=== PATIENT | female | born 1990 | race Caucasian/White ===

== ENCOUNTER 2016-11-03 09:02 | Emergency (ER) | payer SELFPAY ==
[2016-11-03 09:17] VITALS: BP 141/73
[2016-11-03] MEDS ORDERED: Lidocaine 1% with EPINEPHrine 1:100,000 50 ML MDV SUBCUT STA (09:41)
--- NOTE | 2016-11-03 10:10 | EDM.PDOC ---
ED HPI GENERAL MEDICAL PROBLEM - General Chief Complaint: Wound Recheck Stated Complaint: SORE ON FOREHEAD Time Seen by Provider: 11/03/16 09:35 Source of Information: Reports: Patient, RN notes reviewed History Limitations: Reports: No limitations - History of Present Illness INITIAL COMMENTS - FREE TEXT/NARRATIVE: 26-year-old female presents emergency department today with complaints of a boil on her forehead she did have this drained in the clinic 2 days prior to this since reaccumulated she does experience a lot of pain and pressure denies any fevers, currently on antibiotics of Bactrim wound culture shows rare staph aureus with sensitivity to Bactrim - Related Data Allergies Allergy/AdvReac Type Severity Reaction Status Date / Time No Known Allergies Allergy Verified 11/03/16 09:23 Home Meds: Home Meds Fexofenadine/Pseudoephedrine [Alberta-D 12 Hour Tablet] 11/03/16 [History] Sulfamethoxazole/Trimethoprim [Sulfamethoxazole-Tmp Ds Tablet] 11/03/16 [ History] Past Medical History - Past Health History Medical/Surgical History: Denies Medical/Surgical History Social & Family History - Tobacco Use Smoking Status *Q: Never Smoker ED ROS GENERAL - Review of Systems Review Of Systems: See Below Constitutional: Denies: fever, chills Skin: Reports: wound ED EXAM, GENERAL - Physical Exam Exam: See Below Exam Limited By: No limitations General Appearance: alert, WD/WN, no apparent distress Skin Exam: Warm, Erythema, Increased warmth, Wound/incision ED I&D PROCEDURES - I&D Site: forehead Skin prep: chlorhexidine (hibiciens) Local anesthesia - Lidocaine (Xylocaine): 1% with epi Local anesthetic volume: 1cc Area incised with: 11 blade Drainage: purulent, bloody, moderate amount Probed to break up loculations: Yes Packed with: none Sterile dressing: none Complications: No Course - Vital Signs Last Recorded V/S: Last Vital Signs Temp 95.9 F 11/03/16 09:32 Pulse 87 11/03/16 09:32 Resp 13 11/03/16 09:32 BP 141/73 H 11/03/16 09:32 Pulse Ox 95 11/03/16 09:32 - Orders/Labs/Meds Meds: Medications Discontinued Medications Generic Name Dose Route Start Last Admin Trade Name Freq PRN Reason Stop Dose Admin Lidocaine/Epinephrine 20 ml 11/03/16 09:41 11/03/16 09:48 Xylocaine 1% With Epinephrine 1:100,000 SUBCUT 11/03/16 09:42 20 ml NOW STA Administration Departure - Departure Time of Disposition: 10:09 Disposition: Home, Self-Care 01 Condition: good Clinical Impression: Boil, face Forms: ED Department Discharge Additional Instructions: Take full course of antibiotics, Please followup with your primary care provider in 3-5 days if not better, please call return to the emergency department with worsening of symptoms. - Assessment/Plan Plan: Assessment Acuity = acute Site and laterality = boil for head Etiology = bacterial cause rare staph aureus Manifestations = pain Location of injury = home Lab values = none Plan Moderate amount of thick purulent discharge, continue with antibiotics of Bactrim followup appointment with primary care Patient was in agreement with the plan all questions were answered, they were instructed to return to the emergency department or call for worsening symptoms. This note was dictated using [employer]) voice recognition software please call with any questions.
== END 2016-11-03 11:00 | disposition home or self-care (01) ==
LOC: JP.ED 09:02
DX: L02.02 Furuncle of face (principal); Z79.899 Other long term (current) drug therapy
CPT/HCPCS: 10060; 99282-25; 99283-25

== ENCOUNTER 2019-07-27 19:32 | Emergency (ER) | payer BC ==
[2019-07-27] MEDS ORDERED: Ketorolac 60 MG/2 ML SDV IM ONE (19:38)
[2019-07-27 19:40] VITALS: BP 119/52; PULSE 77
[2019-07-27] MEDS ORDERED: Ondansetron 4 MG Tab.DIS PO ONE (19:41)
[2019-07-27] MEDS ORDERED: HYDROmorphone 1 MG/ML Syringe IM ONE (19:41)
--- NOTE | 2019-07-27 19:49 | EDM.PDOC ---
ED HPI GENERAL MEDICAL PROBLEM - General Chief Complaint: Flank Pain Stated Complaint: KIDNEY STONE Time Seen by Provider: 07/27/19 19:35 Source of Information: Reports: Patient, Old Records History Limitations: Reports: No Limitations - History of Present Illness INITIAL COMMENTS - FREE TEXT/NARRATIVE: 28 yo female presents with about an hour's duration of L low back pain associated with nausea/vomiting much like that which she has had numerous times in the past with her recurrent ureterolithiasis. Has seen urology. Has never had to have surgical assistance with passage of the stones. No recent fever. Has a dumpster driver. Has had her stones analyzed. Onset: Today, Sudden Onset Date: 08/11/19 Onset Time: 18:30 Duration: Hour(s): (1+), Constant Location: Reports: Back (Left low back) Quality: Reports: Pressure Severity: Severe Improves with: Reports: Medication Worsens with: Reports: Other (stone moving) Context: Reports: Other (see HPI) Associated Symptoms: Reports: Nausea/Vomiting. Denies: Fever/Chills Treatments [employer]VER [employer]: Reports: Other Medication(s) Flank Pain Score (Numeric/FACES): 10 - Related Data Allergies Allergy/AdvReac Type Severity Reaction Status Date / Time No Known Allergies Allergy Verified 07/27/19 19:57 Home Meds: Home Meds Fexofenadine/Pseudoephedrine [Alberta-D 12 Hour Tablet] 180 mg PO DAILY [History] Pnv No.95/Ferrous Fum/Folic AC [ Vitamin Tablet] 1 each PO DAILY [History] Sertraline [Zoloft] 50 mg PO DAILY 07/27/19 [History] Past Medical History - Past Health History Medical/Surgical History: Denies Medical/Surgical History ED ROS GENERAL - Review of Systems Review Of Systems: Comprehensive ROS is negative, except as noted in HPI. Constitutional: Reports: No Symptoms. Denies: Fever, Chills HEENT: Reports: No Symptoms Respiratory: Reports: No Symptoms GI/Abdominal: Reports: Nausea, Vomiting. Denies: Black Stool, Bloody Stool, Constipation, Diarrhea, Distension, Flatus, Hematemesis, Hematochezia, Melena : Reports: Flank Pain (L low flank area). Denies: Dysuria Musculoskeletal: Reports: No Symptoms Skin: Reports: No Symptoms Neurological: Reports: No Symptoms Psychiatric: Reports: No Symptoms ED EXAM, RENAL/ - Physical Exam Exam: See Below Exam Limited By: No Limitations General Appearance: Alert, WD/WN, Moderate Distress Eye Exam: Bilateral Eye: Normal Inspection Ears: Hearing Grossly Normal Nose: Normal Inspection, No Blood Throat/Mouth: Normal Lips, Normal Voice, No Airway Compromise Head: Atraumatic, Normocephalic Neck: Normal Inspection Respiratory/Chest: No Respiratory Distress, No Accessory Muscle Use Cardiovascular: Regular Rate, Rhythm Back Exam: Normal Inspection. No: CVA Tenderness (R), CVA Tenderness (L) Extremities: Normal Inspection, Normal Range of Motion, Non-Tender, No Pedal Edema Neurological: Alert, Oriented, CN II-XII Intact, Normal Cognition, No Motor/ Sensory Deficits Psychiatric: Normal Affect, Normal Mood Skin Exam: Warm, Dry, Intact, Normal Color, No Rash Course - Vital Signs Last Recorded V/S: Last Vital Signs Temp 35.9 C 07/27/19 19:37 Pulse 77 07/27/19 19:37 Resp 20 07/27/19 19:37 BP 119/52 L 07/27/19 19:37 Pulse Ox 99 07/27/19 19:37 - Orders/Labs/Meds Orders: Active Orders 24 hr Category Date Time Status CULTURE URINE [RM] Stat Lab 07/27/19 20:33 Ordered Labs: Laboratory Tests 07/27/19 Range/Units 19:38 Urine Color [place] A (YELLOW) Urine Appearance Cloudy A (CLEAR) Urine pH 6.0 (5.0-8.0) Ur Specific [place] >= 1.030 (1.008-1.030) Urine Protein Trace H (NEGATIVE) mg/dL Urine Glucose (UA) Negative (NEGATIVE) mg/dL Urine Ketones Negative (NEGATIVE) mg/dL Urine Occult Blood Large H (NEGATIVE) Urine Nitrite Negative (NEGATIVE) Urine Bilirubin Negative (NEGATIVE) Urine Urobilinogen 0.2 (0.2-1.0) EU/dL Ur Leukocyte Esterase Negative (NEGATIVE) Urine RBC 20-30 H (0-5) Urine WBC 5-10 H (0-5) Ur Epithelial Cells Many Amorphous Sediment Few Urine Bacteria Not seen Urine Mucus Many Meds: Medications Discontinued Medications Generic Name Dose Route Start Last Admin Trade Name Freq PRN Reason Stop Dose Admin Hydromorphone HCl 1 mg 07/27/19 19:41 12/03/19 19:49 Dilaudid IM 07/27/19 19:42 1 mg ONETIME ONE Administration Ketorolac Tromethamine 60 mg 07/27/19 19:38 07/27/19 19:49 Toradol IM 07/27/19 19:39 60 mg ONETIME ONE Administration Ondansetron HCl 4 mg 07/27/19 19:41 07/27/19 19:49 Zofran Odt PO 07/27/19 19:42 4 mg ONETIME ONE Administration Departure - Departure Time of Disposition: 20:45 Disposition: Home, Self-Care 01 Condition: Fair Clinical Impression: Ureterolithiasis - Discharge Information *PRESCRIPTION DRUG MONITORING PROGRAM REVIEWED*: No *COPY OF PRESCRIPTION DRUG MONITORING REPORT IN PATIENT DEN: No Referrals: Toya Yoder PA [Primary Care Provider] - Forms: ED Department Discharge Additional Instructions: Strain urine and save any sediment. Drink more fluids to stay well hydrated. Take Zofran as needed for nausea control. Take Percocet and ibuprofen(none for 5.5 hrs) for pain control. Recheck with your doctor as needed. - My Orders Last 24 Hours: My Active Orders 07/27/19 20:33 CULTURE URINE [RM] Stat - Assessment/Plan Last 24 Hours: My Active Orders 07/27/19 20:33 CULTURE URINE [RM] Stat
== END 2019-07-27 20:52 | disposition home or self-care (01) ==
LOC: JP.ED 19:32
DX: N20.1 Calculus of ureter (principal)
CPT/HCPCS: 81001; 87086; 96372; 99284; A9270; J1170; J1885

== ENCOUNTER 2020-04-16 11:08 | Inpatient (IN) | payer MEDICAID ==
[2020-04-16] MEDS ORDERED: fentaNYL 100 MCG/2 ML SDV IVPUSH PRN (12:29)
[2020-04-16] MEDS ORDERED: Sodium Chloride 0.9% 10 ML Syringe FLUSH PRN (12:29)
[2020-04-16] MEDS ORDERED: Ondansetron 4 MG/2 ML SDV IV PRN (12:29)
[2020-04-16] MEDS ORDERED: Calcium Carbonate 500 MG Tab.Chew PO PRN (12:29)
[2020-04-16] MEDS ORDERED: ePHEDrine 50 MG/ML SDV IVPUSH PRN (12:34)
[2020-04-16] MEDS ORDERED: Lactated Ringers 1,000 ML IV ONE (12:34)
--- NOTE | 2020-04-16 12:41 | PCM.LDHP ---
L&D History of Present Illness - General Date of Service: 04/16/20 Admit Problem/Dx: Patient Status Order with Admit Dx/Problem 04/16/20 12:30 Patient Status [ADT] Routine Admission Diagnosis/Problem Admission Diagnosis/Problem Spontaneous rupture of amniotic membranes Source of Information: Patient History Limitations: Reports: No Limitations - History of Present Illness Introduction:: 04/16/20 29 yo is here at 38 4/7 with SROM of clear fluid at home. She has felt as though she has been leaking some fluid for several weeks which was likely increased vaginal discharge. She noticed more leaking starting Friday evening. She felt a few "gushes" last evening around supper and then filled several pads with clear fluid overnight but did not come in until late this am. She is not antonia. SVE /-3. She is GBS neg, Rubella immune, A positive blood type, all STI's negative. She has likely been ruptured for somewhere between 19 (big gushes) and 43 hours (Friday when she started feeling leaking). She is afebrile and fluid is clear. Category 1 tracing. Her and her both agree to Pitocin induction. - Related Data Allergies/Adverse Reactions: Allergies Allergy/AdvReac Type Severity Reaction Status Date / Time No Known Allergies Allergy Verified 07/27/19 19:57 Home Medications: Home Meds Fexofenadine/Pseudoephedrine [Alberta-D 12 Hour Tablet] 180 mg PO DAILY 11/03/16 [History] Pnv No.95/Ferrous Fum/Folic AC [ Vitamin Tablet] 1 each PO DAILY 07/27/19 [History] Sertraline [Zoloft] 50 mg PO DAILY 07/27/19 [History] Omeprazole 20 mg PO DAILY 04/16/20 [History] Past Medical History - Past Health History Medical/Surgical History: Denies Medical/Surgical History Genitourinary History: Reports: Renal Calculus 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: : 3 Para: 2 LMP (Approximate): Psychiatric History: Reports: Anxiety, Depression - Past Surgical History HEENT Surgical History: Reports: Adenoidectomy, Tonsillectomy Female Surgical History: Reports: None Social & Family History - Family History Family Medical History: Noncontributory - Tobacco Use Smoking Status *Q: Never Smoker - Caffeine Use Caffeine Use: Reports: Coffee, Soda, Tea - Recreational Drug Use Recreational Drug Use: No H&P Review of Systems - Review of Systems: Review Of Systems: See Below General: Reports: No Symptoms HEENT: Reports: No Symptoms Pulmonary: Reports: No Symptoms Cardiovascular: Reports: No Symptoms Gastrointestinal: Reports: No Symptoms Genitourinary: Reports: No Symptoms Musculoskeletal: Reports: No Symptoms Skin: Reports: No Symptoms Psychiatric: Reports: No Symptoms Neurological: Reports: No Symptoms Hematologic/Lymphatic: Reports: No Symptoms Immunologic: Reports: No Symptoms L&D Exam - Exam Exam: See Below - Vital Signs Vital Signs: Last Vital Signs Temp 36.8 C 04/16/20 11:51 Pulse 97 04/16/20 11:51 Resp 16 04/16/20 11:51 BP 142/81 H 04/16/20 11:51 Pulse Ox 96 04/16/20 11:51 Weight: 105.687 kg - OB Specific Contraction Intensity: Mild Movement: Active Heart Tones: Present Heart Tones per Min: 140 Heart Rate (FHR) Variability: Moderate (6-25 bmp) Presentation: Vertex - Thompson Score Thompson Score Cervix Position: Posterior Thompson Score Consistency: Soft Thompson Score Effacement: 51-70% Thompson Score Dilation: 1-2 cm Thompson Score Infant's Station: -3 Thompson Score Total: 5 - Exam General: Alert, Oriented HEENT: PERRLA, Conjunctiva Clear, Hearing Intact, Mucosa Moist & [place], Nares Patent, Normal Nasal Septum, Posterior Pharynx Clear Neck: Supple, Trachea Midline Lungs: Clear to Auscultation, Normal Respiratory Effort Cardiovascular: Regular Rate, Regular Rhythm GI/Abdominal Exam: Normal Bowel Sounds, Soft, Non-Tender, No Organomegaly, No Distention, No Abnormal Bruit, No Mass, Pelvis Stable Rectal Exam: Normal Exam, Normal Rectal Tone Genitourinary: Normal external exam, Cervical dilitation. No: Vaginal bleeding Back Exam: Normal Inspection, Full Range of Motion Extremities: Normal Inspection, Normal Range of Motion, Non-Tender, No Pedal Edema, Normal Capillary Refill Skin: Warm, Dry, Intact Neurological: Cranial Nerves Intact, Reflexes Equal Bilateral Psychiatric: Alert, Normal Affect, Normal Mood - Patient Data Lab Results Last 24 hrs: Laboratory Results - last 24 hr 04/16/20 04/16/20 Range/Units 11:28 11:28 Urine Color Yellow (YELLOW) Urine Appearance Clear (CLEAR) Urine pH 7.0 (5.0-8.0) Ur Specific [place] 1.015 (1.008-1.030) Urine Protein Negative (NEGATIVE) mg/dL Urine Glucose (UA) Negative (NEGATIVE) mg/dL Urine Ketones Negative (NEGATIVE) mg/dL Urine Occult Blood Trace-intact H (NEGATIVE) Urine Nitrite Negative (NEGATIVE) Urine Bilirubin Negative (NEGATIVE) Urine Urobilinogen 0.2 (0.2-1.0) EU/dL Ur Leukocyte Esterase Negative (NEGATIVE) Urine RBC Not seen (0-5) Urine WBC Not seen (0-5) Ur Epithelial Cells Few Membrane Rupture Positive H (NEGATIVE) - Problem List (1) Spontaneous rupture of amniotic membranes SNOMED Code(s): 981060951 ICD Code: [id number] - Status: Acute Current Visit: Yes (2) Prolonged rupture of membranes Status: Acute Current Visit: Yes (3) SNOMED Code(s): 23573630 ICD Code: Z34.90 - ENCNTR FOR SUPRVSN OF NORMAL , UNSP, UNSP TRIMESTER Status: Acute Current Visit: Yes Qualifiers: Weeks of gestation: 38 weeks Qualified Code(s): Z3A.38 - 38 weeks gestation of Problem List Initiated/Reviewed/Updated: Yes Orders Last 24hrs: Active Orders 24 hr Category Date Time Status Patient Status [ADT] Routine ADT 04/16/20 12:30 Ordered Communication Order [RC] ASDIRECTED Care 04/16/20 12:30 Ordered Communication Order [RC] ASDIRECTED Care 04/16/20 12:34 Ordered Heart Tones [RC] PER UNIT ROUTINE Care 04/16/20 12:30 Ordered Insert Urinary Catheter [OM.PC] ASDIRECTED Care 04/16/20 12:45 Ordered Local Anesthetic Infusion Pump [RC] ASDIRECTED Care 04/16/20 12:34 Ordered Notify Provider Vital Signs [RC] PRN Care 04/16/20 12:31 Ordered Notify Provider [RC] PRN Care 04/16/20 12:30 Ordered OB Check [OM.PC] Click to Edit Care 04/16/20 11:09 Ordered PCEA Epidural [RC] ASDIRECTED Care 04/16/20 12:34 Ordered PCEA Epidural [RC] ASDIRECTED Care 04/16/20 12:34 Ordered Up ad [place] [RC] ASDIRECTED Care 04/16/20 12:29 Ordered Urinary Catheter Assessment [RC] ASDIRECTED Care 04/16/20 12:34 Ordered VTE/DVT Education [RC] Click to Edit Care 04/16/20 12:31 Ordered Vital Signs [RC] PER UNIT ROUTINE Care 04/16/20 12:30 Ordered Regular Diet [DIET] Diet 04/16/20 Lunch Ordered CBC W/O DIFF,HEMOGRAM [HEME] Routine Lab 04/16/20 12:29 Ordered Calcium Carbonate [Tums] Med 04/16/20 12:29 Ordered 1,000 mg PO Q2HR PRN Lactated Ringers [Ringers, Lactated] 1,000 ml Med 04/16/20 12:34 Ordered IV .BOLUS Ondansetron [Zofran] Med 04/16/20 12:29 Ordered 4 mg IV Q4H PRN Oxytocin/Normal Saline [Pitocin in NS 20 Units/1,000 ML Med 04/16/20 12:30 Ordered ] 20 unit in 1,000 ml IV TITRATE Sodium Chloride 0.9% [Saline Flush] Med 04/16/20 12:29 Ordered 10 ml FLUSH ASDIRECTED PRN ePHEDrine [ePHEDrine sulfate] Med 04/16/20 12:34 Ordered 10 mg IVPUSH ASDIRECTED PRN fentaNYL [Sublimaze] Med 04/16/20 12:29 Ordered 50 mcg IVPUSH Q1H PRN DVT/VTE Prophylaxis Reflex [OM.PC] Routine Oth 04/16/20 12:29 Ordered Epidural Catheter Management [OM.PC] Urgent Oth 04/16/20 12:34 Ordered Saline Lock Insert [OM.PC] Routine Oth 04/16/20 12:30 Ordered Resuscitation Status Routine Resus Stat 04/16/20 12:29 Ordered Medication Orders Calcium Carbonate/Glycine (Tums) 1,000 mg PO Q2HR PRN PRN Reason: Indigestion Fentanyl (Sublimaze) 50 mcg IVPUSH Q1H PRN PRN Reason: Pain (moderate 4-6) Oxytocin/Sodium Chloride (Pitocin In Ns 20 Units/1,000 Ml) 20 unit in 1,000 mls @ 6 mls/hr IV TITRATE NAVIN; Protocol Ondansetron HCl (Zofran) 4 mg IV Q4H PRN PRN Reason: Nausea/Vomiting Sodium Chloride (Saline Flush) 10 ml FLUSH ASDIRECTED PRN PRN Reason: Keep Vein Open Assessment/Plan Comment:: 04/16/20 here with Prelabor SROM at home somewhere between 19-43 hours Fluid is clear Category 1 tracing SVE 2/50/-3 GBS negative Plan: Starting pitocin induction Patient plans epidural Anticipate of male infant
[2020-04-16] MEDS ORDERED: Lactated Ringers 1,000 ML IV SCH (13:00)
--- NOTE | 2020-04-16 15:50 | PCM.PNLD ---
Labor Progress Note - VS & Meds Vital Signs: Last Vital Signs Temp 36.4 C 04/16/20 15:34 Pulse 85 04/16/20 15:34 Resp 18 04/16/20 15:34 BP 147/86 H 04/16/20 15:34 Pulse Ox 96 04/16/20 15:34 Active Medications: Current Medications Calcium Carbonate/Glycine (Tums) 1,000 mg PO Q2H PRN PRN Reason: Indigestion Ephedrine Sulfate (Ephedrine Sulfate) 10 mg IVPUSH ASDIRECTED PRN PRN Reason: Hypotension Fentanyl (Sublimaze) 50 mcg IVPUSH Q1H PRN PRN Reason: Pain (moderate 4-6) Oxytocin/Sodium Chloride (Pitocin In Ns 20 Units/1,000 Ml) 20 unit in 1,000 mls @ 6 mls/hr IV TITRATE NAVIN; Protocol Last Titration: 04/16/20 15:34 Dose: 12 munits/min, 36 mls/hr Documented by: Lactated Ringer's (Ringers, Lactated) 1,000 mls @ 0 mls/hr IV ASDIRECTED NAVIN Last Admin: 04/16/20 13:21 Dose: 25 mls/hr Documented by: Ondansetron HCl (Zofran) 4 mg IV Q4H PRN PRN Reason: Nausea/Vomiting Sodium Chloride (Saline Flush) 10 ml FLUSH ASDIRECTED PRN PRN Reason: Keep Vein Open Discontinued Medications Lactated Ringer's (Ringers, Lactated) 1,000 mls @ 999 mls/hr IV .BOLUS ONE Stop: 04/16/20 13:34 Last Admin: 04/16/20 14:36 Dose: 999 mls/hr Documented by: - Uterine Contractions Uterine Monitoring Mode: External [place] Contraction Frequency (min): 2-3 Contraction Duration (sec): 40-60 Contraction Intensity: Mild Uterine Resting Tone: Soft - Monitoring Monitor Mode: External Ultrasound Heart Rate (FHR) Variability: Moderate (6-25 bmp) Accelerations: Present, 15x15 Decelerations: None - Vaginal Exam Dilation (cm): 3 Effacement (Percent): 60 Station: -2 Cervical Position: Posterior Sterile Vaginal Exam Performed By: Tamanna Chan - Labor Progress (Free Text) Labor Progress: 04/16/20 SVE 3/60/-2, patient has made good cervical change and baby has dropped into the pelvis further. She is just starting to feel contractions but is tolerating them well. Up moving and on the ball so strip is not picking up baby much. Continue to increase pitocin as needed. Fluid continues to be clear. Category 1 tracing.
--- NOTE | 2020-04-16 17:35 | PCM.PNLD ---
Labor Progress Note - VS & Meds Vital Signs: Last Vital Signs Temp 36.4 C 04/16/20 16:44 Pulse 78 04/16/20 16:44 Resp 18 04/16/20 16:44 BP 141/76 H 04/16/20 16:44 Pulse Ox 95 04/16/20 16:44 Active Medications: Current Medications Calcium Carbonate/Glycine (Tums) 1,000 mg PO Q2H PRN PRN Reason: Indigestion Ephedrine Sulfate (Ephedrine Sulfate) 10 mg IVPUSH ASDIRECTED PRN PRN Reason: Hypotension Fentanyl (Sublimaze) 50 mcg IVPUSH Q1H PRN PRN Reason: Pain (moderate 4-6) Oxytocin/Sodium Chloride (Pitocin In Ns 20 Units/1,000 Ml) 20 unit in 1,000 mls @ 6 mls/hr IV TITRATE NAVIN; Protocol Last Titration: 04/16/20 17:01 Dose: 16 munits/min, 48 mls/hr Documented by: Lactated Ringer's (Ringers, Lactated) 1,000 mls @ 0 mls/hr IV ASDIRECTED NAVIN Last Admin: 04/16/20 13:21 Dose: 25 mls/hr Documented by: Ondansetron HCl (Zofran) 4 mg IV Q4H PRN PRN Reason: Nausea/Vomiting Sodium Chloride (Saline Flush) 10 ml FLUSH ASDIRECTED PRN PRN Reason: Keep Vein Open Discontinued Medications Lactated Ringer's (Ringers, Lactated) 1,000 mls @ 999 mls/hr IV .BOLUS ONE Stop: 04/16/20 13:34 Last Admin: 04/16/20 14:36 Dose: 999 mls/hr Documented by: - Uterine Contractions Uterine Monitoring Mode: External [place] Contraction Frequency (min): 2-3 Contraction Duration (sec): 60 Contraction Intensity: Moderate Uterine Resting Tone: Soft - Monitoring Monitor Mode: External Ultrasound Heart Rate (FHR) Variability: Moderate (6-25 bmp) Accelerations: Present, 15x15 Decelerations: None - Vaginal Exam Dilation (cm): 3 Effacement (Percent): 60 Station: -2 Cervical Position: Posterior Sterile Vaginal Exam Performed By: Tamanna Chan - Labor Progress (Free Text) Labor Progress: 04/16/20 Patient feeling rectal pressure so she was checked. SVE the same. Continue with clear fluid, no fever, FHT's category 1. Pitocin now at 17 mu/min. Continue to monitor. We did hands and knees for awhile. Encouraging up walking and as much upright movement as possible. Consider epidural once in active labor.
--- NOTE | 2020-04-16 18:42 | PCM.PNLD ---
Labor Progress Note - VS & Meds Vital Signs: Last Vital Signs Temp 36.4 C 04/16/20 16:44 Pulse 78 04/16/20 16:44 Resp 18 04/16/20 16:44 BP 141/76 H 04/16/20 16:44 Pulse Ox 95 04/16/20 16:44 Active Medications: Current Medications Calcium Carbonate/Glycine (Tums) 1,000 mg PO Q2H PRN PRN Reason: Indigestion Ephedrine Sulfate (Ephedrine Sulfate) 10 mg IVPUSH ASDIRECTED PRN PRN Reason: Hypotension Fentanyl (Sublimaze) 50 mcg IVPUSH Q1H PRN PRN Reason: Pain (moderate 4-6) Oxytocin/Sodium Chloride (Pitocin In Ns 20 Units/1,000 Ml) 20 unit in 1,000 mls @ 6 mls/hr IV TITRATE NAVIN; Protocol Last Titration: 04/16/20 17:25 Dose: 17 munits/min, 51 mls/hr Documented by: Lactated Ringer's (Ringers, Lactated) 1,000 mls @ 0 mls/hr IV ASDIRECTED NAVIN Last Admin: 04/16/20 13:21 Dose: 25 mls/hr Documented by: Ondansetron HCl (Zofran) 4 mg IV Q4H PRN PRN Reason: Nausea/Vomiting Sodium Chloride (Saline Flush) 10 ml FLUSH ASDIRECTED PRN PRN Reason: Keep Vein Open Discontinued Medications Lactated Ringer's (Ringers, Lactated) 1,000 mls @ 999 mls/hr IV .BOLUS ONE Stop: 04/16/20 13:34 Last Admin: 04/16/20 14:36 Dose: 999 mls/hr Documented by: - Uterine Contractions Uterine Monitoring Mode: External [place], Palpation Contraction Frequency (min): 2 Contraction Duration (sec): 40-60 Contraction Intensity: Moderate Uterine Resting Tone: Soft - Monitoring Monitor Mode: External Ultrasound Heart Rate (FHR) Variability: Moderate (6-25 bmp) Accelerations: Present, 15x15 Decelerations: None, Variable (one noted, portable monitors not working) - Vaginal Exam Dilation (cm): 4 Effacement (Percent): 80 Station: -2 Cervical Position: Midposition Sterile Vaginal Exam Performed By: Tamanna Chan - Labor Progress (Free Text) Labor Progress: 04/16/20 Contractions are now painful, patient in tub. SVE /-2. Calling for epidural now. One variable noted, continue to monitor.
[2020-04-16] MEDS ORDERED: Ropivacaine 200 MG in Premix Bag 1 BAG EPIDUR SCH (19:30)
[2020-04-16] MEDS ORDERED: Ropivacaine 100 ML ONE (19:40)
--- NOTE | 2020-04-16 20:48 | PCM.PNLD ---
Labor Progress Note - VS & Meds Vital Signs: Last Vital Signs Temp 36.8 C 04/16/20 19:30 Pulse 90 04/16/20 19:50 Resp 18 04/16/20 19:50 BP 134/83 04/16/20 19:50 Pulse Ox 96 04/16/20 19:50 Active Medications: Current Medications Calcium Carbonate/Glycine (Tums) 1,000 mg PO Q2H PRN PRN Reason: Indigestion Ephedrine Sulfate (Ephedrine Sulfate) 10 mg IVPUSH ASDIRECTED PRN PRN Reason: Hypotension Fentanyl (Sublimaze) 50 mcg IVPUSH Q1H PRN PRN Reason: Pain (moderate 4-6) Oxytocin/Sodium Chloride (Pitocin In Ns 20 Units/1,000 Ml) 20 unit in 1,000 mls @ 6 mls/hr IV TITRATE NAVIN; Protocol Last Titration: 04/16/20 20:30 Dose: 12 munits/min, 36 mls/hr Documented by: Lactated Ringer's (Ringers, Lactated) 1,000 mls @ 0 mls/hr IV ASDIRECTED NAVIN Last Admin: 04/16/20 13:21 Dose: 25 mls/hr Documented by: Ondansetron HCl (Zofran) 4 mg IV Q4H PRN PRN Reason: Nausea/Vomiting Sodium Chloride (Saline Flush) 10 ml FLUSH ASDIRECTED PRN PRN Reason: Keep Vein Open Discontinued Medications Lactated Ringer's (Ringers, Lactated) 1,000 mls @ 999 mls/hr IV .BOLUS ONE Stop: 04/16/20 13:34 Last Admin: 04/16/20 14:36 Dose: 999 mls/hr Documented by: Ropivacaine (Naropin 0.2%) Confirm Administered Dose 100 mls @ as directed .ROUTE .STK-MED ONE Stop: 04/16/20 19:41 - Uterine Contractions Uterine Monitoring Mode: External [place] Contraction Frequency (min): 3 Contraction Duration (sec): 40-70 Contraction Intensity: Mild to Moderate Uterine Resting Tone: Soft - Monitoring Monitor Mode: External Ultrasound Heart Rate (FHR) Variability: Moderate (6-25 bmp) Accelerations: Present, 15x15 Decelerations: None, Variable (occassional with contractions) Strip Review: Category I - Vaginal Exam Dilation (cm): 6-7 Effacement (Percent): 90 Station: -1 Cervical Position: Midposition Sterile Vaginal Exam Performed By: Tamanna Chan - Labor Progress (Free Text) Labor Progress: 04/16/20 Pitocin was cut down to 10 mu/min during epidural for variable decelerations and difficulty picking up baby. Contractions have become more mild and spaced out now and we have a category 1 tracing so we will go up on the Pitocin again. Bloody show present. SVE is still 6-7/90/-1. Using peanut ball and moving side to side. She is comfortable with the epidural in place. Continue to monitor.
[2020-04-16] MEDS ORDERED: Misoprostol 200 MCG Tab ONE (21:29)
[2020-04-16] MEDS ORDERED: Carboprost Tromethamine 250 MCG/1 ML Amp ONE (21:29)
[2020-04-16] MEDS ORDERED: Methylergonovine 0.2 MG/1 ML Amp ONE (21:30)
[2020-04-16] MEDS ORDERED: Acetaminophen 325 MG Tab, 50 Tab Bulk Bottle PO PRN (22:41)
[2020-04-16] MEDS ORDERED: Benzocaine 20% Top Spray 56 GM Bottle TOP PRN (22:41)
[2020-04-16] MEDS ORDERED: Lanolin 100% Cream 40 GM Tube TOP PRN (22:41)
--- NOTE | 2020-04-16 23:07 | PCM.DEL ---
L & D Note - General Info Date of Service: 04/16/20 Mother's Due Date: 04/26/20 - Delivery Note Labor: Induced by Oxytocin Delivery Outcome: Livebirth Delivery Method: Spontaneous Vaginal Delivery-Single Infant Delivery Mode: Spontaneous Presentation: Left Occiput Anterior (KATERINE) Nuchal Cord: None Anesthesia Type: Epidural Amniotic Fluid Description: Clear Episiotomy Type: None Laceration: None Placenta: Intact, Spontaneous, Clot Cord: 3 Vessels Estimated Blood Loss: 300 Resuscitation Needed: Yes : Suctioned, Bulb Syringe, Stimulated, Warmed, [place] Used, Warmer Used Provider: Tamanna Chan Score 1 min: 8 Score 5 min: 9 Second Stage Interventions: Reports: Second Nurse Assessed Progress of Descent, Second Nurse Reviewed Contraction Pattern, Second Nurse Reviewed Heart Tones, Encouragement Given, Pushing, Pulls Own Legs Back Delivery Comments (Free Text/Narrative):: 04/16/20 29 yo G3 now P3 at 38 4/7 weeks had of a live male at 2223 today. She had prelabor SROM at home of unknown time. First large gush felt 04/15/20 at 1700. She did not start labor on her own and was induced with Pitocin. Between 1999 and 2099 bloody show was noted more than normal. This was monitored closely, there were a few clots, EBL prior to delivery 100 ml which was also mixed with amniotic fluid so difficult to measure. Category 1 tracing with occasional variables noted. Mothers vitals stable so we continued to monitor until delivery. Baby boy delivered after a couple pushes in KATERINE position. There was no nuchal cord. He was placed on mothers chest and delayed cord clamping was done for about 45 seconds. The cord was then clamped and cut and he was brought to the warmer for stimulation. HR was good and he was breathing but was stunned and not crying. Delee was done for 1 ml only. PPV was done x 4 due to shallow respirations and no cry. He pinked up nicely and was brought to mothers chest. Lungs are clear. Placenta delivered spontaneously intact with a 3 vessel cord. There was a clot on one edge of the placenta and a gush with and after delivery of blood- I do believe she was having a mild partial placental abruption towards the end of labor. Apgars 8, 9. Weight 6 lb 9 oz. There are no perineal, vaginal, or cervical lacerations. FF and bleeding light, 3rd stage management includes pitocin IV. Stages: 1: 0844-0654 2: 0448-3007 3: 2633-6889 Induction Criteria - Thompson Score Thompson Score Dilation: 1-2 cm Thompson Score Effacement: 40-50% Thompson Score Infant's Station: -2 Thompson Score Consistency: Soft Thompson Score Cervix Position: Posterior Thompson Score Total: 5 Thompson Score Presenting Part: Reports: Cephalic - Induction Gestational Age >/= 39 wks: Yes Medical Indication: Prelabor ROM at term Estimated Pelvis: Reports: Adequate Reassuring Monitoring Strip: Yes Absence of Tachy Systole: Yes - General Info Date of Service: 04/16/20 Functional Status: Reports: Pain Controlled - Review of Systems General: Reports: No Symptoms HEENT: Reports: No Symptoms Pulmonary: Reports: No Symptoms Cardiovascular: Reports: No Symptoms Gastrointestinal: Reports: No Symptoms Genitourinary: Reports: No Symptoms Musculoskeletal: Reports: No Symptoms Skin: Reports: No Symptoms Neurological: Reports: No Symptoms Psychiatric: Reports: No Symptoms - Patient Data Vitals - Most Recent: Last Vital Signs Temp 37.0 C 04/16/20 22:00 Pulse 92 04/16/20 22:00 Resp 16 04/16/20 22:00 BP 136/72 04/16/20 22:00 Pulse Ox 95 04/16/20 22:00 Weight - Most Recent: 105.687 kg Lab Results Last 24 Hours: Laboratory Results - last 24 hr 04/16/20 04/16/20 04/16/20 Range/Units 11:28 11:28 12:29 WBC 9.4 (4.5-11.0) K/uL RBC 3.88 (3.30-5.50) M/uL Hgb 11.9 L (12.0-15.0) g/dL Hct 36.3 (36.0-48.0) % MCV 94 (80-98) fL MCH 31 (27-31) pg MCHC 33 (32-36) % Plt Count 263 (150-400) K/uL Urine Color Yellow (YELLOW) Urine Appearance Clear (CLEAR) Urine pH 7.0 (5.0-8.0) Ur Specific [place] 1.015 (1.008-1.030) Urine Protein Negative (NEGATIVE) mg/dL Urine Glucose (UA) Negative (NEGATIVE) mg/dL Urine Ketones Negative (NEGATIVE) mg/dL Urine Occult Blood Trace-intact H (NEGATIVE) Urine Nitrite Negative (NEGATIVE) Urine Bilirubin Negative (NEGATIVE) Urine Urobilinogen 0.2 (0.2-1.0) EU/dL Ur Leukocyte Esterase Negative (NEGATIVE) Urine RBC Not seen (0-5) Urine WBC Not seen (0-5) Ur Epithelial Cells Few Membrane Rupture Positive H (NEGATIVE) Med Orders - Current: Current Medications Acetaminophen (Tylenol Bulk Bottle) 0 mg PO Q4H PRN PRN Reason: Pain Benzocaine (Zxeb-N-Qsafzpe 20% [place]) 0 gm TOP Q4H PRN PRN Reason: Perineal Comfort Measure Calcium Carbonate/Glycine (Tums) 1,000 mg PO Q2H PRN PRN Reason: Indigestion Emollient Ointment (Lansinoh Hpa) 1 gm TOP ASDIRECTED PRN PRN Reason: Sore Nipples Ephedrine Sulfate (Ephedrine Sulfate) 10 mg IVPUSH ASDIRECTED PRN PRN Reason: Hypotension Fentanyl (Sublimaze) 50 mcg IVPUSH Q1H PRN PRN Reason: Pain (moderate 4-6) Oxytocin/Sodium Chloride (Pitocin In Ns 20 Units/1,000 Ml) 20 unit in 1,000 mls @ 6 mls/hr IV TITRATE NAVIN; Protocol Last Titration: 04/16/20 21:10 Dose: 14 munits/min, 42 mls/hr Documented by: Lactated Ringer's (Ringers, Lactated) 1,000 mls @ 0 mls/hr IV ASDIRECTED NAVIN Last Admin: 04/16/20 13:21 Dose: 25 mls/hr Documented by: Ibuprofen (Motrin Bulk Bottle) 600 mg PO Q6H PRN PRN Reason: Pain Ondansetron HCl (Zofran) 4 mg IV Q4H PRN PRN Reason: Nausea/Vomiting Sodium Chloride (Saline Flush) 10 ml FLUSH ASDIRECTED PRN PRN Reason: Keep Vein Open Discontinued Medications Carboprost Tromethamine (Hemabate Ds) Confirm Administered Dose 250 mcg .ROUTE .STK-MED ONE Stop: 04/16/20 21:30 Lactated Ringer's (Ringers, Lactated) 1,000 mls @ 999 mls/hr IV .BOLUS ONE Stop: 04/16/20 13:34 Last Admin: 04/16/20 14:36 Dose: 999 mls/hr Documented by: Ropivacaine (Naropin 0.2%) Confirm Administered Dose 100 mls @ as directed .ROUTE .STK-MED ONE Stop: 04/16/20 19:41 Methylergonovine Maleate (Methergine) Confirm Administered Dose 0.2 mg .ROUTE .STK-MED ONE Stop: 04/16/20 21:31 Misoprostol (Cytotec) Confirm Administered Dose 800 mcg .ROUTE .STK-MED ONE Stop: 04/16/20 21:30 - Exam General: Alert, Oriented HEENT: Pupils Equal, Pupils Reactive, EOMI, Mucous Membr. Moist/[place] Neck: Supple Lungs: Clear to Auscultation, Normal Respiratory Effort Cardiovascular: Regular Rate, Regular Rhythm GI/Abdominal Exam: Normal Bowel Sounds, Soft, Non-Tender, No Organomegaly, No Distention, No Abnormal Bruit, No Mass, Pelvis Stable (Female) Exam: Normal External Exam, Normal Speculum Exam, Normal Bimanual Exam, Enlarged Uterus, Vaginal Bleeding. No: Cervical Lesions, Vaginal Tears Back Exam: Normal Inspection, Full Range of Motion Extremities: Normal Inspection, Normal Range of Motion, Non-Tender, No Pedal Edema, Normal Capillary Refill Skin: Warm, Dry, Intact Neurological: No New Focal Deficit Psy/Mental Status: Alert, Normal Affect, Normal Mood - Problem List & Annotations (1) Spontaneous rupture of amniotic membranes SNOMED Code(s): 238165857 Code(s): OKN1738 - Status: Acute Current Visit: Yes (2) Prolonged rupture of membranes Status: Acute Current Visit: Yes (3) SNOMED Code(s): 35990924 Code(s): Z34.90 - ENCNTR FOR SUPRVSN OF NORMAL , UNSP, UNSP TRIMESTER Status: Acute Current Visit: Yes Qualifiers: Weeks of gestation: 38 weeks Qualified Code(s): Z3A.38 - 38 weeks gestation of (4) (normal spontaneous vaginal delivery) SNOMED Code(s): 07813455, 512536508 Code(s): O80 - ENCOUNTER FOR FULL-TERM UNCOMPLICATED DELIVERY Status: Acute Current Visit: Yes - Problem List Review Problem List Initiated/Reviewed/Updated: Yes - My Orders Last 24 Hours: My Active Orders 04/16/20 11:09 OB Check [OM.PC] Click To Edit 04/16/20 Lunch Regular Diet [DIET] 04/16/20 12:29 Up ad [place] [RC] ASDIRECTED Calcium Carbonate [Tums] 1,000 mg PO Q2H PRN Ondansetron [Zofran] 4 mg IV Q4H PRN Sodium Chloride 0.9% [Saline Flush] 10 ml FLUSH ASDIRECTED PRN fentaNYL [Sublimaze] 50 mcg IVPUSH Q1H PRN DVT/VTE Prophylaxis Reflex [OM.PC] Routine Resuscitation Status Routine 04/16/20 12:30 Patient Status [ADT] Routine Communication Order [RC] ASDIRECTED Notify Provider [RC] PRN Vital Signs [RC] PER UNIT ROUTINE Oxytocin/Normal Saline [Pitocin in NS 20 Units/1,000 ML] 20 unit in 1,000 ml IV TITRATE Saline Lock Insert [OM.PC] Routine 04/16/20 12:31 Notify Provider Vital Signs [RC] PRN VTE/DVT Education [RC] Click to Edit 04/16/20 12:34 Communication Order [RC] ASDIRECTED PCEA Epidural [RC] ASDIRECTED PCEA Epidural [RC] ASDIRECTED Urinary Catheter Assessment [RC] ASDIRECTED ePHEDrine [ePHEDrine sulfate] 10 mg IVPUSH ASDIRECTED PRN Epidural Catheter Management [OM.PC] Urgent 04/16/20 12:45 Insert Urinary Catheter [OM.PC] ASDIRECTED 04/16/20 13:00 Lactated Ringers [Ringers, Lactated] 1,000 ml IV ASDIRECTED 04/16/20 22:41 Consult to Billet Examiner [CONS] Routine Acetaminophen [Tylenol Bulk Bottle] See Dose Instructions PO Q4H PRN Benzocaine [Pbgg-S-Rhcmhil 20% [place]] See Dose Instructions TOP Q4H PRN Ibuprofen [Motrin Bulk Bottle] 600 mg PO Q6H PRN Lanolin [Lansinoh HPA] 1 gm TOP ASDIRECTED PRN Assess Lochia [WOMSER] Per Unit Routine Assess Uterine Involution [WOMSER] Per Unit Routine 04/16/20 22:42 Patient Status [ADT] Routine Vital Signs [RC] PFP Ice Therapy [OM.PC] Per Unit Routine Perineal Care [OM.PC] Per Unit Routine 04/17/20 05:11 CBC WITH AUTO DIFF [HEME] AM - Assessment Assessment:: 04/16/20 at 38 4/7 with Perineum intact Partial placental abruption- mild towards the end of labor FF and bleeding light EBL 300 - Plan Plan:: 04/16/20 here with Prelabor SROM at home somewhere between 19-43 hours Fluid is clear Category 1 tracing SVE 250/-3 GBS negative Plan: Starting pitocin induction Patient plans epidural Anticipate of male infant 04/16/20 Routine pp cares support Anticipate 24-48 hour stay
[2020-04-16] MEDS: Ibuprofen 200 MG Tab, 24 Tab Bulk Bottle PO PRN (23:41)
--- NOTE | 2020-04-17 08:04 | ANES ---
DATE OF SERVICE: 04/16/2020 Belkys is a 29-year-old female patient of Tamanna Chan in our Obstetrics Unit. I was consulted to assess the patient for labor epidural. Upon arrival, I discussed patient history, as well as risks and benefits of the procedure, and found no contraindication to the epidural, and consent was received. I had her seated at the edge of the bed. Betadine prep x3 to the lumbar region. A sterile drape was placed. 1% lidocaine, skin wheal as well as deep at the L3-L4 region. A 17-gauge Tuohy was placed to loss of resistance; negative CSF, negative heme, and negative paresthesia. I inserted the catheter to 15 cm. I dosed it with a 3 mL of 1.5% lidocaine and 1:200,000 epinephrine test dose. I found negative sequelae. I placed the patient in the supine position. After the catheter was secured, I dosed her with 12 mL of 0.2% ropivacaine and began an infusion of the same 12 mL an hour. She tolerated the procedure quite well. Please refer to the nurse's notes for vital signs and neuro status, which were unchanged throughout the procedure. I reported off to the nurses and Tamanna the procedure. Again, she tolerated it quite well. Ousmane Rhodes CRNA /[id number]
--- NOTE | 2020-04-17 08:09 | PCM.PNPP ---
- General Info Date of Service: 04/17/20 Functional Status: Reports: Pain Controlled - Review of Systems General: Reports: No Symptoms HEENT: Reports: No Symptoms Pulmonary: Reports: No Symptoms Cardiovascular: Reports: No Symptoms Gastrointestinal: Reports: No Symptoms Genitourinary: Reports: No Symptoms Musculoskeletal: Reports: No Symptoms Skin: Reports: No Symptoms Neurological: Reports: No Symptoms Psychiatric: Reports: No Symptoms - General Info Date of Service: 04/17/20 - Patient Data Vital Signs - Most Recent: Last Vital Signs Temp 36.8 C 04/16/20 22:45 Pulse 96 04/17/20 01:00 Resp 16 04/17/20 01:00 BP 145/76 H 04/17/20 01:00 Pulse Ox 96 04/17/20 01:00 Weight - Most Recent: 105.687 kg I&O - Last 24 Hours: Intake & Output 04/16/20 04/17/20 04/17/20 22:59 06:59 14:59 Intake Total 1000 Output Total 160 Balance -160 1000 Lab Results - Last 24 Hours: Laboratory Results - last 24 hr 04/16/20 04/16/20 04/16/20 Range/Units 11:28 11:28 12:29 WBC 9.4 (4.5-11.0) K/uL RBC 3.88 (3.30-5.50) M/uL Hgb 11.9 L (12.0-15.0) g/dL Hct 36.3 (36.0-48.0) % MCV 94 (80-98) fL MCH 31 (27-31) pg MCHC 33 (32-36) % Plt Count 263 (150-400) K/uL Neut % (Auto) (36-66) % Lymph % (Auto) (24-44) % [place] % (Auto) (2-6) % Eos % (Auto) (2-4) % Baso % (Auto) (0-1) % Urine Color Yellow (YELLOW) Urine Appearance Clear (CLEAR) Urine pH 7.0 (5.0-8.0) Ur Specific [place] 1.015 (1.008-1.030) Urine Protein Negative (NEGATIVE) mg/dL Urine Glucose (UA) Negative (NEGATIVE) mg/dL Urine Ketones Negative (NEGATIVE) mg/dL Urine Occult Blood Trace-intact H (NEGATIVE) Urine Nitrite Negative (NEGATIVE) Urine Bilirubin Negative (NEGATIVE) Urine Urobilinogen 0.2 (0.2-1.0) EU/dL Ur Leukocyte Esterase Negative (NEGATIVE) Urine RBC Not seen (0-5) Urine WBC Not seen (0-5) Ur Epithelial Cells Few Membrane Rupture Positive H (NEGATIVE) 04/17/20 Range/Units 04:00 WBC 12.9 H (4.5-11.0) K/uL RBC 3.38 (3.30-5.50) M/uL Hgb 10.4 L (12.0-15.0) g/dL Hct 32.0 L (36.0-48.0) % MCV 95 (80-98) fL MCH 31 (27-31) pg MCHC 33 (32-36) % Plt Count 214 (150-400) K/uL Neut % (Auto) 73 H (36-66) % Lymph % (Auto) 18 L (24-44) % [place] % (Auto) 8 H (2-6) % Eos % (Auto) 0 L (2-4) % Baso % (Auto) 0 (0-1) % Urine Color (YELLOW) Urine Appearance (CLEAR) Urine pH (5.0-8.0) Ur Specific [place] (1.008-1.030) Urine Protein (NEGATIVE) mg/dL Urine Glucose (UA) (NEGATIVE) mg/dL Urine Ketones (NEGATIVE) mg/dL Urine Occult Blood (NEGATIVE) Urine Nitrite (NEGATIVE) Urine Bilirubin (NEGATIVE) Urine Urobilinogen (0.2-1.0) EU/dL Ur Leukocyte Esterase (NEGATIVE) Urine RBC (0-5) Urine WBC (0-5) Ur Epithelial Cells Membrane Rupture (NEGATIVE) Med Orders - Current: Current Medications Acetaminophen (Tylenol Bulk Bottle) 0 mg PO Q4H PRN PRN Reason: Pain Last Admin: 04/16/20 23:42 Dose: 1 bottle Documented by: Benzocaine (Svvm-O-Uvbdewe 20% [place]) 0 gm TOP Q4H PRN PRN Reason: Perineal Comfort Measure Last Admin: 04/16/20 23:41 Dose: 1 applic Documented by: Calcium Carbonate/Glycine (Tums) 1,000 mg PO Q2H PRN PRN Reason: Indigestion Emollient Ointment (Lansinoh Hpa) 1 gm TOP ASDIRECTED PRN PRN Reason: Sore Nipples Last Admin: 04/16/20 23:42 Dose: 1 applic Documented by: Ibuprofen (Motrin Bulk Bottle) 600 mg PO Q6H PRN PRN Reason: Pain Last Admin: 04/16/20 23:41 Dose: 1 bottle Documented by: Ondansetron HCl (Zofran) 4 mg IV Q4H PRN PRN Reason: Nausea/Vomiting Sodium Chloride (Saline Flush) 10 ml FLUSH ASDIRECTED PRN PRN Reason: Keep Vein Open Discontinued Medications Carboprost Tromethamine (Hemabate Ds) Confirm Administered Dose 250 mcg .ROUTE .STK-MED ONE Stop: 04/16/20 21:30 Last Admin: 04/17/20 01:30 Dose: Not Given Documented by: Ephedrine Sulfate (Ephedrine Sulfate) 10 mg IVPUSH ASDIRECTED PRN PRN Reason: Hypotension Fentanyl (Sublimaze) 50 mcg IVPUSH Q1H PRN PRN Reason: Pain (moderate 4-6) Oxytocin/Sodium Chloride (Pitocin In Ns 20 Units/1,000 Ml) 20 unit in 1,000 mls @ 6 mls/hr IV TITRATE NAVIN; Protocol Last Titration: 04/16/20 22:30 Dose: 333 munits/min, 999 mls/hr Documented by: Lactated Ringer's (Ringers, Lactated) 1,000 mls @ 999 mls/hr IV .BOLUS ONE Stop: 04/16/20 13:34 Last Admin: 04/16/20 14:36 Dose: 999 mls/hr Documented by: Lactated Ringer's (Ringers, Lactated) 1,000 mls @ 0 mls/hr IV ASDIRECTED NAVIN Last Admin: 04/16/20 13:21 Dose: 25 mls/hr Documented by: Ropivacaine (Naropin 0.2%) Confirm Administered Dose 100 mls @ as directed .ROUTE .STK-MED ONE Stop: 04/16/20 19:41 Methylergonovine Maleate (Methergine) Confirm Administered Dose 0.2 mg .ROUTE .STK-MED ONE Stop: 04/16/20 21:31 Last Admin: 04/17/20 01:30 Dose: Not Given Documented by: Misoprostol (Cytotec) Confirm Administered Dose 600 mcg .ROUTE .STK-MED ONE Stop: 04/16/20 21:30 Last Admin: 04/17/20 01:30 Dose: Not Given Documented by: - Interaction Infant Disposition, : [place] in Room with Family Infant Interaction: Holding Infant Feeding: Breastfed Infant; Nursed Well Support Person: - Recovery Exam Fundal Tone: Firm Fundal Level: 2 Fingerbreadths Below Umbilicus Fundal Placement: Midline Lochia Amount: Small, Moderate Lochia Color: [place]/Red Perineum Description: Intact, Minimal Bruising/Swelling Episiotomy/Laceration: None Bladder Status: Voiding Urinary Elimination: Voided - Exam General: Alert, Oriented HEENT: Pupils Equal, Pupils Reactive, Mucous Membr. Moist/[place] Neck: Supple Lungs: Clear to Auscultation, Normal Respiratory Effort Cardiovascular: Regular Rate, Regular Rhythm GI/Abdominal Exam: Normal Bowel Sounds, Soft, Non-Tender, No Organomegaly, No Distention, No Mass, Pelvis Stable Extremities: Normal Inspection, Normal Range of Motion, Non-Tender, No Pedal Edema, Normal Capillary Refill Skin: Warm, Dry, Intact Neurological: No New Focal Deficit Psy/Mental Status: Alert, Normal Affect, Normal Mood - Problem List & Annotations (1) Spontaneous rupture of amniotic membranes SNOMED Code(s): 064706535 Code(s): ZWX3517 - Status: Acute Current Visit: Yes (2) Prolonged rupture of membranes Status: Acute Current Visit: Yes (3) SNOMED Code(s): 44653598 Code(s): Z34.90 - ENCNTR FOR SUPRVSN OF NORMAL , UNSP, UNSP TRIMESTER Status: Acute Current Visit: Yes Qualifiers: Weeks of gestation: 38 weeks Qualified Code(s): Z3A.38 - 38 weeks gestation of (4) (normal spontaneous vaginal delivery) SNOMED Code(s): 08529150, 854864403 Code(s): O80 - ENCOUNTER FOR FULL-TERM UNCOMPLICATED DELIVERY Status: Acute Current Visit: Yes - Problem List Review Problem List Initiated/Reviewed/Updated: Yes - My Orders Last 24 Hours: My Active Orders 04/16/20 11:09 OB Check [OM.PC] Click To Edit 04/16/20 Lunch Regular Diet [DIET] 04/16/20 12:29 Up ad [place] [RC] ASDIRECTED Calcium Carbonate [Tums] 1,000 mg PO Q2H PRN Ondansetron [Zofran] 4 mg IV Q4H PRN Sodium Chloride 0.9% [Saline Flush] 10 ml FLUSH ASDIRECTED PRN DVT/VTE Prophylaxis Reflex [OM.PC] Routine Resuscitation Status Routine 04/16/20 12:30 Patient Status [ADT] Routine Vital Signs [RC] PER UNIT ROUTINE Saline Lock Insert [OM.PC] Routine 04/16/20 12:31 Notify Provider Vital Signs [RC] PRN VTE/DVT Education [RC] Click to Edit 04/16/20 12:34 Epidural Catheter Management [OM.PC] Urgent 04/16/20 12:45 Insert Urinary Catheter [OM.PC] ASDIRECTED 04/16/20 22:41 Consult to Toaster Element Repairer [CONS] Routine Acetaminophen [Tylenol Bulk Bottle] See Dose Instructions PO Q4H PRN Benzocaine [Tjuu-F-Onhlwek 20% [place]] See Dose Instructions TOP Q4H PRN Ibuprofen [Motrin Bulk Bottle] 600 mg PO Q6H PRN Lanolin [Lansinoh HPA] 1 gm TOP ASDIRECTED PRN Assess Lochia [WOMSER] Per Unit Routine Assess Uterine Involution [WOMSER] Per Unit Routine 04/16/20 22:42 Patient Status [ADT] Routine Vital Signs [RC] PFP Ice Therapy [OM.PC] Per Unit Routine Perineal Care [OM.PC] Per Unit Routine - Assessment Assessment:: 04/16/20 at 38 4/7 with Perineum intact Partial placental abruption- mild towards the end of labor FF and bleeding light EBL 300 04/17/20 Day 1 , no complications Pain well controlled FF and bleeding light, no clots BP ran high during labor and delivery and is still elevated today Hgb 10.4, down from 11.9 going very well - Plan Plan:: 04/16/20 here with Prelabor SROM at home somewhere between 19-43 hours Fluid is clear Category 1 tracing SVE 2/50/-3 GBS negative Plan: Starting pitocin induction Patient plans epidural Anticipate of male infant 04/16/20 Routine pp cares support Anticipate 24-48 hour stay 04/17/20 Routine cares support Anticipate discharge home tomorrow
[2020-04-17] MEDS: Sertraline 50 MG Tab PO SCH (17:29)
[2020-04-18 07:50] VITALS: BP 141/76; PULSE 85
[2020-04-18] MEDS: Ibuprofen 200 MG Tab, 24 Tab Bulk Bottle PO PRN (07:52)
--- NOTE | 2020-04-18 07:52 | PCM.PNPP ---
- General Info Date of Service: 04/18/20 (PPD 2 D/c) Admission Dx/Problem (Free Text): Patient Status Order with Admit Dx/Problem 04/16/20 12:30 Patient Status [ADT] Routine Admission Diagnosis/Problem Admission Diagnosis/Problem Spontaneous rupture of amniotic membranes Functional Status: Reports: Pain Controlled - Review of Systems General: Reports: No Symptoms HEENT: Reports: No Symptoms Pulmonary: Reports: No Symptoms Cardiovascular: Reports: No Symptoms Gastrointestinal: Reports: No Symptoms Genitourinary: Reports: No Symptoms Musculoskeletal: Reports: No Symptoms Skin: Reports: No Symptoms Neurological: Reports: No Symptoms Psychiatric: Reports: No Symptoms - Patient Data Vital Signs - Most Recent: Last Vital Signs Temp 97.3 F 04/17/20 23:29 Pulse 77 04/17/20 23:29 Resp 16 04/18/20 03:00 BP 129/83 04/17/20 23:29 Pulse Ox 97 04/17/20 23:29 Weight - Most Recent: 232 lb 15.999 oz I&O - Last 24 Hours: Intake & Output 04/17/20 04/18/20 04/18/20 22:59 06:59 14:59 Intake Total 650 Output Total 1 Balance 649 Med Orders - Current: Current Medications Acetaminophen (Tylenol Bulk Bottle) 0 mg PO Q4H PRN PRN Reason: Pain Last Admin: 04/16/20 23:42 Dose: 1 bottle Documented by: Benzocaine ([id number] 20% [place]) 0 gm TOP Q4H PRN PRN Reason: Perineal Comfort Measure Last Admin: 04/16/20 23:41 Dose: 1 applic Documented by: Calcium Carbonate/Glycine (Tums) 1,000 mg PO Q2H PRN PRN Reason: Indigestion Emollient Ointment (Lansinoh Hpa) 1 gm TOP ASDIRECTED PRN PRN Reason: Sore Nipples Last Admin: 04/16/20 23:42 Dose: 1 applic Documented by: Ibuprofen (Motrin Bulk Bottle) 600 mg PO Q6H PRN PRN Reason: Pain Last Admin: 04/16/20 23:41 Dose: 1 bottle Documented by: Ondansetron HCl (Zofran) 4 mg IV Q4H PRN PRN Reason: Nausea/Vomiting Sertraline HCl (Zoloft) 50 mg PO DAILY [facility] Last Admin: 04/17/20 17:29 Dose: 50 mg Documented by: Sodium Chloride (Saline Flush) 10 ml FLUSH ASDIRECTED PRN PRN Reason: Keep Vein Open Discontinued Medications Carboprost Tromethamine (Hemabate Ds) Confirm Administered Dose 250 mcg .ROUTE .STK-MED ONE Stop: 04/16/20 21:30 Last Admin: 04/17/20 01:30 Dose: Not Given Documented by: Ephedrine Sulfate (Ephedrine Sulfate) 10 mg IVPUSH ASDIRECTED PRN PRN Reason: Hypotension Fentanyl (Sublimaze) 50 mcg IVPUSH Q1H PRN PRN Reason: Pain (moderate 4-6) Oxytocin/Sodium Chloride (Pitocin In Ns 20 Units/1,000 Ml) 20 unit in 1,000 mls @ 6 mls/hr IV TITRATE NAVIN; Protocol Last Titration: 04/16/20 22:30 Dose: 333 munits/min, 999 mls/hr Documented by: Lactated Ringer's (Ringers, Lactated) 1,000 mls @ 999 mls/hr IV .BOLUS ONE Stop: 04/16/20 13:34 Last Admin: 04/16/20 14:36 Dose: 999 mls/hr Documented by: Lactated Ringer's (Ringers, Lactated) 1,000 mls @ 0 mls/hr IV ASDIRECTED NAVIN Last Admin: 04/16/20 13:21 Dose: 25 mls/hr Documented by: Ropivacaine (Naropin 0.2%) Confirm Administered Dose 100 mls @ as directed .ROUTE .STK-MED ONE Stop: 04/16/20 19:41 Methylergonovine Maleate (Methergine) Confirm Administered Dose 0.2 mg .ROUTE .STK-MED ONE Stop: 04/16/20 21:31 Last Admin: 04/17/20 01:30 Dose: Not Given Documented by: Misoprostol (Cytotec) Confirm Administered Dose 600 mcg .ROUTE .STK-MED ONE Stop: 04/16/20 21:30 Last Admin: 04/17/20 01:30 Dose: Not Given Documented by: - Infant Interaction Infant Disposition, : in Room with Family Interaction: Holding Infant Feeding: Breastfed ; Nursed Well Support Person: - Recovery Exam Fundal Tone: Firm Fundal Level: 2 Fingerbreadths Below Umbilicus Fundal Placement: Midline Lochia Amount: Moderate, Clots/Tissue Present Lochia Color: Rubra/Red Perineum Description: Intact, Minimal Bruising/Swelling Episiotomy/Laceration: None Bladder Status: Voiding Urinary Elimination: Voided - Exam General: Alert, Oriented HEENT: Pupils Equal Neck: Supple Lungs: Clear to Auscultation Cardiovascular: Regular Rate GI/Abdominal Exam: Normal Bowel Sounds, Soft Extremities: No Pedal Edema, Normal Capillary Refill Skin: Warm, Dry, Intact Wound/Incisions: Healing Well Neurological: No New Focal Deficit Psy/Mental Status: Alert, Normal Affect, Normal Mood - Problem List & Annotations (1) Spontaneous rupture of amniotic membranes SNOMED Code(s): 272791766 Code(s): SWI2806 - Status: Acute Current Visit: Yes (2) Prolonged rupture of membranes Status: Acute Current Visit: Yes (3) (normal spontaneous vaginal delivery) SNOMED Code(s): 05649239, 679115916 Code(s): O80 - ENCOUNTER FOR FULL-TERM UNCOMPLICATED DELIVERY Status: Acute Current Visit: Yes - Problem List Review Problem List Initiated/Reviewed/Updated: Yes - My Orders Last 24 Hours: My Active Orders 04/17/20 17:00 Sertraline [Zoloft] 50 mg PO DAILY - Assessment Assessment:: 04/16/20 at 38 4/7 with Perineum intact Partial placental abruption- mild towards the end of labor FF and bleeding light EBL 300 04/17/20 Day 1 , no complications Pain well controlled FF and bleeding light, no clots BP ran high during labor and delivery and is still elevated today Hgb 10.4, down from 11.9 going very well 04/18/20 PPD 2 D/C Very happy with baby mood stable, restarted medication going OK, baby loves to suck. Will meet with telehealth nurse educator before discharge voiding and mild cramping wants to go home - Plan Plan:: 04/16/20 here with [facility] SROM at home somewhere between 19-43 hours Fluid is clear Category 1 tracing SVE /-3 GBS negative Plan: Starting pitocin induction Patient plans epidural Anticipate of male infant 04/16/20 Routine pp cares support Anticipate 24-48 hour stay 04/17/20 Routine cares support Anticipate discharge home tomorrow 04/18/20 Home today see me in 6 weeks
[2020-04-18] MEDS: Sertraline 50 MG Tab PO SCH (08:55)
== END 2020-04-18 10:05 | disposition home or self-care (01) | DRG 805 ==
LOC: JP.OBCHECK 11:08 → JP.OB 12:30 → OBSVTOIN 22:23 → JP.MS 04-17 01:30
PROVIDERS: ADMIT Advanced Practice Midwife; ATTEND Advanced Practice Midwife
PROC: 10E0XZZ Delivery of Products of Conception, External Approach (ICD-10-PCS; principal; 2020-04-16)
PROC: 3E033VJ Introduction of Other Hormone into Peripheral Vein, Percutaneous Approach (ICD-10-PCS; 2020-04-16)
PROC: 3E0R3BZ Introduction of Anesthetic Agent into Spinal Canal, Percutaneous Approach (ICD-10-PCS; 2020-04-16)
PROC: 00HU33Z Insertion of Infusion Device into Spinal Canal, Percutaneous Approach (ICD-10-PCS; 2020-04-16)
DX: O99.344 Other mental disorders complicating childbirth (principal); O45.93 Premature separation of placenta, unspecified, third trimester; Z37.0 Single live birth; F41.9 Anxiety disorder, unspecified; F32.9 Major depressive disorder, single episode, unspecified; Z87.442 Personal history of urinary calculi; Z79.899 Other long term (current) drug therapy; Z3A.38 38 weeks gestation of pregnancy
CPT/HCPCS: 36415; 51702; 59409; 81001; 84112; 85025; 85027; 99211; A9270-GY; J2590; J2795; J7120